=== PATIENT | male | born 1955 | race Two or more races ===

== ENCOUNTER 2018-06-03 10:05 | Outpatient (CLI) | payer BC | END 2018-06-03 23:59 | disposition home or self-care (01) | LOC: WOU 10:05 | PROVIDERS: ATTEND Specialist | DX: Z01.818 Encounter for other preprocedural examination (principal); L59.8 Other specified disorders of the skin and subcutaneous tissue related to radiation; C44.42 Squamous cell carcinoma of skin of scalp and neck; D47.1 Chronic myeloproliferative disease; T86.821 Skin graft (allograft) (autograft) failure; Z92.21 Personal history of antineoplastic chemotherapy; R05 Cough; D45 Polycythemia vera; Z92.3 Personal history of irradiation | CPT/HCPCS: 71046; 99205; A6402; G0463 ==

== ENCOUNTER 2018-06-10 09:25 | Outpatient (CLI) | payer BC | END 2018-06-10 23:59 | disposition home or self-care (01) | LOC: WOU 09:25 | PROVIDERS: ATTEND Specialist | DX: L59.8 Other specified disorders of the skin and subcutaneous tissue related to radiation (principal); C44.42 Squamous cell carcinoma of skin of scalp and neck; D47.1 Chronic myeloproliferative disease; T86.821 Skin graft (allograft) (autograft) failure | CPT/HCPCS: A6402; G0463 ==

== ENCOUNTER 2018-06-24 12:34 | Outpatient (CLI) | payer BC | END 2018-06-24 23:59 | disposition home or self-care (01) | LOC: WOU 12:34 | PROVIDERS: ATTEND Specialist | DX: L59.8 Other specified disorders of the skin and subcutaneous tissue related to radiation (principal); T86.821 Skin graft (allograft) (autograft) failure; Z86.718 Personal history of other venous thrombosis and embolism; Z92.21 Personal history of antineoplastic chemotherapy; C94.6 Myelodysplastic disease, not elsewhere classified | CPT/HCPCS: 99214; A6402; G0463 ==

== ENCOUNTER 2018-07-15 09:10 | Outpatient (CLI) | payer BC | END 2018-07-15 23:59 | disposition home or self-care (01) | LOC: WOU 09:10 | PROVIDERS: ATTEND Specialist | DX: L59.8 Other specified disorders of the skin and subcutaneous tissue related to radiation (principal); Z87.891 Personal history of nicotine dependence; D47.1 Chronic myeloproliferative disease; T86.821 Skin graft (allograft) (autograft) failure; C44.42 Squamous cell carcinoma of skin of scalp and neck | CPT/HCPCS: 87070; 99213; A6207; A6402; G0463 ==

== ENCOUNTER 2018-07-22 10:00 | Outpatient (CLI) | payer BC | END 2018-07-22 23:59 | disposition home or self-care (01) | LOC: WOU 10:00 | PROVIDERS: ATTEND Specialist | DX: L59.8 Other specified disorders of the skin and subcutaneous tissue related to radiation (principal); T86.821 Skin graft (allograft) (autograft) failure; D47.1 Chronic myeloproliferative disease; C44.42 Squamous cell carcinoma of skin of scalp and neck | CPT/HCPCS: 99213; A6402; G0463 ==